=== PATIENT | female | born 1985 | race Caucasian/White ===

== ENCOUNTER 2016-04-04 16:23 | Emergency (ER) | payer MEDICAID ==
[~2016-04-04] VITALS: Ht 167.6 cm; Wt 56.8 kg
[~2016-04-04 16:23] MED LIST: AMBIEN 10MG10 MG PO; AMBIEN5 MG PO; AMOXICILLIN 8751 TAB PO; ASPIRIN 32325 MG/TAB PO; ATIVAN 0.50.5 MG/TAB PO; BETAPACE 80MG80 MG PO; CIPRO 500MG TA500 MG PO; CORDARONE200 MG/TAB PO; CYANOCOBAL1000 MCG/1 SQ; CYMBALTA 60MG60 MG PO; DEPO-PROVER150 MG/ML IM; DITROPAN 5MG TAB5 MG PO; DUO-KAPS1 CAP PO; HUMIRA40 MG/0.1 SC; LIORESAL 1010 MG/TAB PO; PENTASA500 MG PO; POTASSIUM CHLO10 ME5 PO; PREDNISONE 5MG5 MG PO; PREDNISONE1 MG PO; PRINIVIL2.5 MG PO; PROZAC10 M1 PO; PROZAC20 MG PO; REMICADE V100 MG/VIA IV; SOTALOL80 MG PO; TYLENOL EXTRA500 M1 PO; ZOLOFT 100MG100 MG PO; ZOLOFT100 MG PO; ZOLOFT50 MG PO
[2016-04-04 16:24] VITALS: TEMP 97.8
[2016-04-04] MEDS ORDERED: [UNRECOGNIZED DRUG - OTHER] PO (16:39)
[2016-04-04] MEDS ORDERED: DULCOLAX STOOL100 MG PO (16:41)
[2016-04-04] MEDS ORDERED: DEPO-PROVE150 MG/1 M IM (16:41)
[2016-04-04 17:18] LABS: BASO % 0.5 % (0.0-2.0); EOS % 0.5 % (0-4.0); GRAN # 3.2 (1.4-6.5); GRAN % 76.4 % (42.2-75.2); HEMATOCRIT 39.4 % (37.0-47.0); HEMOGLOBIN 12.8 g/dl (12.5-16.0); LYMPH # 0.5 (1.2-3.4); LYMPH % 12.3 % (20.0-51.0); MEAN CELL VOLUME 81 fl (80.0-100.0); MEAN CORPUSCULAR HEMOGLOBIN 26 pg (27.0-31.0); MEAN CORPUSCULAR HGB CONC 33 g/dl (33.0-37.0); MONO # 0.4 (0.1-0.6); MONO % 10.1 % (1.7-9.3); PLATELET COUNT 164 K/mm3 (130-400); RED BLOOD COUNT 4.84 M/mm3 (4.10-5.30); REDCELL DISTRIBUTION WIDTH-CV 13.6 % (11.5-14.5); WHITE BLOOD COUNT 4.2 K/mm3 (4.8-10.8)
[2016-04-04 17:37] LABS: ADJUSTED CALCIUM 9.1 mg/dL (8.4-10.2); BILIRUBIN,TOTAL 0.9 mg/dL (0.0-1.0); CALCIUM 9.1 mg/dL (8.4-10.2); CREATININE, serum 1.01 mg/dL (0.52-1.25); POTASSIUM 3.9 mmol/L (3.4-5.0); TOTAL PROTEIN 7.8 gm/dL (6.4-8.2)
[2016-04-04 18:16] LABS: PH 5 (5-8); URINE APPEARANCE Clear; URINE BACTERIA None Seen /hpf; URINE BILIRUBIN Negative (NEGATIVE); URINE BLOOD Negative (NEGATIVE); URINE COLOR Yellow; URINE GLUCOSE Negative (NEGATIVE); URINE KETONE Negative (NEGATIVE); URINE RBC 0-2 /hpf; URINE UROBILINOGEN Negative (NEGATIVE)
[2016-04-04] MEDS ORDERED: LASIX 20MG TABL20 MG PO (19:48)
[2016-04-04] MEDS ORDERED: K-DUR 10 MEQ T10 MEQ PO (19:48)
[2016-04-04] MEDS ORDERED: CENA K20 MEQ/15 PO (19:55)
[2016-04-04 20:04] VITALS: BP 111/67; PULSE 68
== END 2016-04-04 20:05 | disposition home or self-care (01) ==
LOC: COL.ER 16:23
PROVIDERS: Emergency Medicine
DX: I50.9 Heart failure, unspecified (principal); G11.1 Early-onset cerebellar ataxia

== ENCOUNTER 2016-04-06 12:59 | Observation (INO) | payer MEDICAID ==
[~2016-04-06] VITALS: Ht 167.6 cm; Wt 61.2 kg
[~2016-04-06 12:59] MED LIST changes: +CENA K20 MEQ/15 PO; +DEPO-PROVE150 MG/1 M IM; +DULCOLAX STOOL100 MG PO; +K-DUR 10 MEQ T10 MEQ PO; +LASIX 20MG TABL20 MG PO; +[UNRECOGNIZED DRUG - OTHER] PO
[2016-04-06 14:17] LABS: INR 1.2 (0.8-3.0); PROTHROMBIN TIME 13.5 SECONDS (9.7-12.8)
[2016-04-06 14:18] LABS: BASO % 0.3 % (0.0-2.0); GRAN # 4.3 (1.4-6.5); GRAN % 72.1 % (42.2-75.2); HEMATOCRIT 42.8 % (37.0-47.0); HEMOGLOBIN 13.9 g/dl (12.5-16.0); LYMPH # 1.1 (1.2-3.4); LYMPH % 18.4 % (20.0-51.0); MEAN CELL VOLUME 82 fl (80.0-100.0); MEAN CORPUSCULAR HEMOGLOBIN 27 pg (27.0-31.0); MEAN CORPUSCULAR HGB CONC 33 g/dl (33.0-37.0); MEAN PLATELET VOLUME 11.3 fl (7.4-10.4); MONO # 0.5 (0.1-0.6); PLATELET COUNT 163 K/mm3 (130-400); RED BLOOD COUNT 5.24 M/mm3 (4.10-5.30); REDCELL DISTRIBUTION WIDTH-CV 13.8 % (11.5-14.5)
[2016-04-06 14:24] LABS: INFLUENZA B NEGATIVE
[2016-04-06 14:25] LABS: ADJUSTED CALCIUM 9.1 mg/dL (8.4-10.2); ALBUMIN 4.4 gm/dL (3.5-5.0); BILIRUBIN,TOTAL 0.8 mg/dL (0.0-1.0); CALCIUM 9.4 mg/dL (8.4-10.2); CREATININE, serum 1.2 mg/dL (0.52-1.25); POTASSIUM 3.6 mmol/L (3.4-5.0); TOTAL PROTEIN 8.6 gm/dL (6.4-8.2)
[2016-04-06 14:30] LABS: PH 5 (5-8); SQUAMOUS EPITHELIAL 0-2 /hpf; URINE APPEARANCE Clear; URINE BACTERIA None Seen /hpf; URINE BILIRUBIN Negative (NEGATIVE); URINE BLOOD 1+ (NEGATIVE); URINE COLOR Yellow; URINE GLUCOSE Negative (NEGATIVE); URINE KETONE Trace (NEGATIVE); URINE RBC 0-2 /hpf; URINE UROBILINOGEN Negative (NEGATIVE); URINE WBC 0-2 /hpf
[2016-04-06 14:41] LABS: TROPONIN-I 0.079 ng/mL (0.000-0.034)
[2016-04-06 15:19] LABS: C-REACTIVE PROTEIN 2.7 mg/dL (0.0-0.9)
[2016-04-06 18:15] VITALS: BP 100/66; PULSE 88; TEMP 99.4
[2016-04-06 20:46] VITALS: BP 82/50; BP 96/50; PULSE 71
[2016-04-06 23:20] VITALS: BP 115/67; PULSE 81; TEMP 98.2
[2016-04-07 05:35] VITALS: BP 91/60; PULSE 85; TEMP 98.7
[2016-04-07 07:39] VITALS: BP 91/55; PULSE 80; TEMP 98.1
[2016-04-07 11:18] VITALS: BP 98/58; PULSE 77; TEMP 99.4
[2016-04-07] MEDS ORDERED: TAMIFLU 75MG75 MG PO (13:17)
[2016-04-07] MEDS ORDERED: ROBITUSSIN DM 105 ML PO (13:18)
== END 2016-04-07 14:30 | disposition home or self-care (01) ==
LOC: COL.ER 12:59 → MEDICAL 14:43
PROVIDERS: Emergency Medicine
DX: J11.1 Influenza due to unidentified influenza virus with other respiratory manifestations (principal); E86.0 Dehydration; R19.7 Diarrhea, unspecified; I42.9 Cardiomyopathy, unspecified; I50.9 Heart failure, unspecified; K50.90 Crohn's disease, unspecified, without complications; G11.1 Early-onset cerebellar ataxia
CPT/HCPCS: G0378; J7030

== ENCOUNTER 2016-04-11 20:50 | Emergency (ER) | payer MEDICAID ==
[~2016-04-11 20:50] MED LIST changes: +ROBITUSSIN DM 105 ML PO; +TAMIFLU 75MG75 MG PO
[2016-04-11 20:54] VITALS: TEMP 97.7
[2016-04-11 21:12] LABS: BASO % 0.3 % (0.0-2.0); EOS % 0.2 % (0-4.0); GRAN # 6.2 (1.4-6.5); GRAN % 63.4 % (42.2-75.2); HEMATOCRIT 39.8 % (37.0-47.0); HEMOGLOBIN 13.3 g/dl (12.5-16.0); LYMPH # 2.8 (1.2-3.4); MEAN CELL VOLUME 80 fl (80.0-100.0); MEAN CORPUSCULAR HEMOGLOBIN 27 pg (27.0-31.0); MEAN CORPUSCULAR HGB CONC 33 g/dl (33.0-37.0); MEAN PLATELET VOLUME 10.7 fl (7.4-10.4); MONO # 0.7 (0.1-0.6); MONO % 6.9 % (1.7-9.3); PLATELET COUNT 263 K/mm3 (130-400); REDCELL DISTRIBUTION WIDTH-CV 13.9 % (11.5-14.5); WHITE BLOOD COUNT 9.7 K/mm3 (4.8-10.8)
[2016-04-11 21:18] LABS: ADJUSTED CALCIUM 9.4 mg/dL (8.4-10.2); ALBUMIN 4.1 gm/dL (3.5-5.0); CALCIUM 9.5 mg/dL (8.4-10.2); CREATININE, serum 0.86 mg/dL (0.52-1.25); POTASSIUM 3.5 mmol/L (3.4-5.0); TOTAL PROTEIN 7.9 gm/dL (6.4-8.2)
[2016-04-11 22:44] VITALS: BP 98/74; PULSE 156
[2016-04-11 23:21] LABS: TROPONIN-I 0.111 ng/mL (0.000-0.034)
== END 2016-04-11 23:15 | disposition short-term general hospital (02) ==
LOC: COL.ER 20:50
PROVIDERS: Emergency Medicine
DX: I47.1 Supraventricular tachycardia (principal); G11.1 Early-onset cerebellar ataxia; Z74.01 Bed confinement status
CPT/HCPCS: J0153; J7040; J7050